=== PATIENT | female | born 2000 | race Caucasian/White ===

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

== ENCOUNTER 2019-04-16 02:50 | Emergency (ER) | payer OTHER ==
[~2019-04-16] VITALS: Ht 167.6 cm; Wt 102.1 kg
[~2019-04-16 02:50] MED LIST changes: +FLUOXETINE HCL20 MG PO; +ZOFRAN8 MG PO
--- OUTSIDE RECORDS SUMMARY | 2019-04-16 02:52 | XMS ---
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 Care History Medical/Surgical 05/27/2018 [facility] - [facility] CALLED PATIENT AND LEFT A VOICEMAIL. - PATIENT NEEDS TO ESTABLISH CARE WITH A PCP. - [facility] SENT PATIENT NO PCP LETTER. E.D. VISIT COUNT (12 MO.) 1 [facility] 3 [facility] TOTAL 4 NOTE: Visits indicate total known visits. 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 - Allergy status to penicillin 11/07/2018 19:15 [facility] [place] TYPE: Emergency DIAGNOSES: - Diarrhea, unspecified - Abd pain,diarrhea,N - Diarrhea (Adult) 11/07/2018 18:44 [facility] TYPE: Urgent Care DIAGNOSES: - Proc/trtmt not crd out d/t pt lv bef seen by [facility] - Tachycardia - Diarrhea 10/24/2018 13:19 [facility] TYPE: Urgent Care DIAGNOSES: - Noninfective gastroenteritis and colitis, unspecified - Tension-type headache, unspecified, not intractable - Other - Acute pharyngitis, unspecified 10/03/2018 14:15 [facility] TYPE: Urgent Care DIAGNOSES: - Dysuria - Ear Fullness - Other specified noninflammatory disorders of vagina - High risk heterosexual behavior - Sexually Transmitted Diseases - Unspecified acute noninfective otitis externa, right ear - Rash - Bit/stung by nonvenom insect \T\ oth nonvenom arthropods, init 05/26/2018 08:10 [facility] [place] TYPE: Emergency COMPLAINT: - PANIC ATTACK DIAGNOSES: - Palpitations - Anxiety disorder, unspecified - Nicotine dependence, unspecified, uncomplicated - Allergy status to penicillin INPATIENT VISIT TRACKING (12 MO.) No inpatient visits to display in this time frame [id number]
== END 2019-04-16 04:03 | disposition home or self-care (01) ==
LOC: ED 02:50
DX: R10.32 Left lower quadrant pain (principal); Z87.891 Personal history of nicotine dependence; Z88.0 Allergy status to penicillin; Z79.899 Other long term (current) drug therapy
CPT/HCPCS: 80053; 81001; 84703; 85025; 99284

== ENCOUNTER 2019-09-11 02:20 | Emergency (ER) | payer OTHER ==
[~2019-09-11] VITALS: Ht 170.2 cm; Wt 117.9 kg
--- OUTSIDE RECORDS SUMMARY | 2019-09-11 02:22 | XMS ---
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 Care History Medical/Surgical 05/27/2018 [facility] - W CALLED PATIENT AND LEFT A VOICEMAIL. - PATIENT NEEDS TO ESTABLISH CARE WITH A PCP. - [facility] SENT PATIENT NO PCP LETTER. E.D. VISIT COUNT (12 MO.) [address] [place] [address] [facility] TOTAL 4 NOTE: Visits indicate total known visits. 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 TYPE: Urgent Care DIAGNOSES: - Procedure and treatment not carried out due to patient leavin - Tachycardia - Diarrhea 10/24/2018 13:19 [facility] TYPE: Urgent Care DIAGNOSES: - Noninfective gastroenteritis and colitis, unspecified - Tension-type headache, unspecified, not intractable - Other - Acute pharyngitis, unspecified 10/03/2018 14:15 [facility] [place] TYPE: Urgent Care DIAGNOSES: - Dysuria - Ear Fullness - Other specified noninflammatory disorders of vagina - High risk heterosexual behavior - Sexually Transmitted Diseases - Unspecified acute noninfective otitis externa, right ear - Rash - Bitten or stung by nonvenomous insect and other nonvenomous a INPATIENT VISIT TRACKING (12 MO.) No inpatient visits to display in this time frame [id number]
== END 2019-09-11 05:10 | disposition home or self-care (01) ==
LOC: ED 02:20
DX: F32.9 Major depressive disorder, single episode, unspecified (principal); F41.9 Anxiety disorder, unspecified; Z87.891 Personal history of nicotine dependence; Z88.0 Allergy status to penicillin
CPT/HCPCS: 80053; 80176; 81001; 84443; 84703; 85025; 99284; G0480